=== PATIENT | male | born 1945 | race Caucasian/White ===

== ENCOUNTER 2017-10-14 12:56 | Inpatient (IN) | payer MEDICARE ==
[~2017-10-14] VITALS: Ht 185.4 cm; Wt 97.9 kg
[~2017-10-14 12:56] MED LIST: AMOCLA875 PO; Ambien5 MG PO; Antivert25 MG PO; BREO ELLIPTA 21 EACH IH; Calan Sr120 MG PO; ELIQUIS5 MG; ELIQUIS5 MG PO; ERGO400 PO; HYDMOR2 PO; HYDMOR4 PO; Isosorbide Mono30 MG PO; LISI5 PO; Lisinopril2.5 MG; METO50ER PO; Preservision A1 EACH PO; SERT25 PO; SERT50 PO; SOTO80; SOTO80 PO; TRAZ100 PO; VERA180ER PO; XARELTO15 MG PO; ZOLP5 PO
[2017-10-14 13:37] LABS: BASOPHILS ABSOLUTE AUTO 0.04 K/mm3 (0.00-0.23); BASOPHILS PERCENT AUTO 1 % (0-2); EOSINOPHILS ABSOLUTE AUTO 0.03 K/mm3 (0.00-0.68); EOSINOPHILS PERCENT AUTO 0 % (0-6); Hematocrit 41.5 % (37.0-53.0); Hemoglobin 14.1 g/dL (13.5-17.5); IMMATURE GRAN ABSOLUTE AUTO 0.03 K/mm3 (0.00-0.10); IMMATURE GRAN PERCENT AUTO 0 % (0-1); LYMPHOCYTES PERCENT AUTO 22 % (21-46); MONOCYTES ABSOLUTE AUTO 0.72 K/mm3 (0.16-1.47); MONOCYTES PERCENT AUTO 9 % (4-13); Mean Corpuscular HGB 30.9 pg (26.0-34.0); Mean Corpuscular Volume 91 fL (80-100); Mean Platelet Volume 10.6 fL (9.1-12.4); NEUTROPHILS ABSOLUTE AUTO 5.61 K/mm3 (1.96-9.15); NEUTROPHILS PERCENT AUTO 68 % (41-73); Platelet Count 182 K/mm3 (150-400); RDW Coefficient Variation 13.8 % (11.7-14.2); RDW Standard Deviation 45.7 fL (35.1-46.3); Red Blood Cell Count 4.57 M/mm3 (4.30-5.90); White Blood Cell Count 8.23 K/mm3 (4.00-11.30)
[2017-10-14 13:58] LABS: Alanine Aminotransfer (ALT/SGP 19 U/L (12-78); Albumin, Blood 3.5 g/dL (3.4-5.0); Albumin/Globulin Ratio 0.9 (0.8-1.8); Alk Phos 55 U/L (50-136); Anion Gap 8 mmol/L (6-16); Aspartate Aminotrans (AST/SGOT 18 U/L (12-37); Blood Urea Nitrogen 10 mg/dL (8-24); Bun/Creatinine Ratio 13.8 (12.0-20.0); CO2, Blood 23 mmol/L (21-32); Calcium, Blood 8.5 mg/dL (8.5-10.1); Chloride, Blood 107 mmol/L (98-108); Creatinine, Blood 0.73 mg/dL (0.60-1.20); Globulin, Blood 3.7 g/dL (2.2-4.0); Glomerular Filtration Rate >60 (60-); Glucose, Blood 154 mg/dL (70-99); Potassium, Blood 3.7 mmol/L (3.5-5.5); Sodium, Blood 138 mmol/L (136-145); Total Protein, Blood 7.2 g/dL (6.4-8.2); Troponin I <0.015 ng/mL (0.000-0.040)
[2017-10-15 04:25] LABS: Alanine Aminotransfer (ALT/SGP 18 U/L (12-78); Albumin/Globulin Ratio 0.9 (0.8-1.8); Alk Phos 47 U/L (50-136); Anion Gap 7 mmol/L (6-16); Aspartate Aminotrans (AST/SGOT 9 U/L (12-37); Bilirubin, Total 0.9 mg/dL (0.1-1.0); Blood Urea Nitrogen 9 mg/dL (8-24); Bun/Creatinine Ratio 10.8 (12.0-20.0); CO2, Blood 26 mmol/L (21-32); Calcium, Blood 8.3 mg/dL (8.5-10.1); Chloride, Blood 108 mmol/L (98-108); Creatinine, Blood 0.84 mg/dL (0.60-1.20); Globulin, Blood 3.5 g/dL (2.2-4.0); Glomerular Filtration Rate >60 (60-); Glucose, Blood 95 mg/dL (70-99); Potassium, Blood 3.7 mmol/L (3.5-5.5); Sodium, Blood 141 mmol/L (136-145); Total Protein, Blood 6.5 g/dL (6.4-8.2); Troponin I <0.015 ng/mL (0.000-0.040)
[2017-10-15 12:47] LABS: Source, Urine Voided
[2017-10-15 12:54] LABS: Appearance, Urine Clear (Clear); Bilirubin, Urine Neg (Neg); Blood, Urine Neg (Neg); Color, Urine Yellow (P-Yellow); Glucose Qualitative, Urine Neg (Neg); Ketones, Urine Neg (Neg); Leukocyte Esterase, Urine Neg (Neg); Nitrite, Urine Neg (Neg); Protein, Urine Neg (Neg); Urobilinogen, Urine NORM (Normal)
[2017-10-16 04:37] LABS: Anion Gap 7 mmol/L (6-16); Blood Urea Nitrogen 12 mg/dL (8-24); Bun/Creatinine Ratio 14.6 (12.0-20.0); CO2, Blood 27 mmol/L (21-32); Chloride, Blood 107 mmol/L (98-108); Creatinine, Blood 0.82 mg/dL (0.60-1.20); Glomerular Filtration Rate >60 (60-); Glucose, Blood 99 mg/dL (70-99); Potassium, Blood 3.6 mmol/L (3.5-5.5); Sodium, Blood 141 mmol/L (136-145)
[2017-10-16] MEDS ORDERED: Micro-K10 MEQ PO (19:18)
[2017-10-16] MEDS ORDERED: Lasix20 MG PO (19:19)
== END 2017-10-16 19:36 | disposition home or self-care (01) | DRG 310 ==
LOC: ER 12:56 → PCU 14:39
PROVIDERS: Emergency Medicine; Family Medicine
PROC: 5A2204Z Restoration of Cardiac Rhythm, Single (ICD-10-PCS; principal; 2017-10-16)
DX: I48.91 Unspecified atrial fibrillation (principal); J44.9 Chronic obstructive pulmonary disease, unspecified; I25.10 Atherosclerotic heart disease of native coronary artery without angina pectoris; I11.0 Hypertensive heart disease with heart failure; I50.9 Heart failure, unspecified; E78.5 Hyperlipidemia, unspecified; Z95.1 Presence of aortocoronary bypass graft; Z79.01 Long term (current) use of anticoagulants; Z79.899 Other long term (current) drug therapy; Z87.891 Personal history of nicotine dependence
CPT/HCPCS: 36415; 71045; 71046; 80048; 80053; 81003; 83880; 84484; 85025; 92960; 93005; 93010; 93306; 94640; 94760; 96374; 99285; J1940; J2250; J2310; J3010

== ENCOUNTER 2018-01-09 07:52 | Day surgery (SDC) | payer MEDICARE ==
[~2018-01-09] VITALS: Ht 182.9 cm; Wt 90.0 kg
[~2018-01-09 07:52] MED LIST changes: +LISI20 PO; +Lasix20 MG PO; +Micro-K10 MEQ PO; +POTA10T PO; +TRAZ100
== END 2018-01-09 22:32 | disposition home or self-care (01) ==
LOC: MHTC 07:52
PROC: 5A2204Z Restoration of Cardiac Rhythm, Single (ICD-10-PCS; principal; 2018-01-09)
DX: I48.0 Paroxysmal atrial fibrillation (principal); I25.10 Atherosclerotic heart disease of native coronary artery without angina pectoris; I42.9 Cardiomyopathy, unspecified; Z87.891 Personal history of nicotine dependence; Z79.01 Long term (current) use of anticoagulants
CPT/HCPCS: 92960; 93005; 93010; 99152; J2250; J2310; J3010; J7030

== ENCOUNTER 2018-07-06 05:55 | Day surgery (SDC) | payer MEDICARE ==
[~2018-07-06] VITALS: Ht 185.4 cm; Wt 90.0 kg
== END 2018-07-06 22:40 | disposition home or self-care (01) ==
LOC: MHTC 05:55
DX: I48.91 Unspecified atrial fibrillation (principal)
CPT/HCPCS: 92960; 93005; 93010; 99152; J2250; J3010; J7030

== ENCOUNTER 2018-09-13 09:09 | Day surgery (SDC) | payer MEDICARE ==
[~2018-09-13] VITALS: Ht 185.4 cm; Wt 86.4 kg
== END 2018-09-13 12:00 | disposition home or self-care (01) ==
LOC: MHTC 09:09
DX: I48.91 Unspecified atrial fibrillation (principal); I50.9 Heart failure, unspecified; I50.22 Chronic systolic (congestive) heart failure
CPT/HCPCS: 92960; 93005; 93010; 99152; J2250; J3010; J7030

== ENCOUNTER → 2019-05-29 | Outpatient (CLI) | payer MEDICARE | END | disposition home or self-care (01) | LOC: PLD 07:28 → LAB SHORT 07:28 | DX: D04.5 Carcinoma in situ of skin of trunk (principal) | CPT/HCPCS: 88305 ==

== ENCOUNTER 2019-07-21 12:44 | Emergency (ER) | payer OTHER, MEDICARE ==
[~2019-07-21] VITALS: Ht 185.4 cm; Wt 90.7 kg
[2019-07-21 13:18] LABS: BASOPHILS ABSOLUTE AUTO 0.04 K/mm3 (0.00-0.23); BASOPHILS PERCENT AUTO 1 % (0-2); EOSINOPHILS ABSOLUTE AUTO 0.04 K/mm3 (0.00-0.68); EOSINOPHILS PERCENT AUTO 1 % (0-6); Hematocrit 45.7 % (37.0-53.0); Hemoglobin 15.5 g/dL (13.5-17.5); IMMATURE GRAN ABSOLUTE AUTO 0.02 K/mm3 (0.00-0.10); IMMATURE GRAN PERCENT AUTO 0 % (0-1); LYMPHOCYTES PERCENT AUTO 32 % (21-46); MONOCYTES ABSOLUTE AUTO 0.89 K/mm3 (0.16-1.47); MONOCYTES PERCENT AUTO 12 % (4-13); Mean Corpuscular HGB 30.5 pg (26.0-34.0); Mean Corpuscular HGB Conc 33.9 g/dL (31.5-36.5); Mean Corpuscular Volume 90 fL (80-100); Mean Platelet Volume 10.6 fL (9.1-12.4); NEUTROPHILS ABSOLUTE AUTO 3.86 K/mm3 (1.96-9.15); NEUTROPHILS PERCENT AUTO 54 % (41-73); Platelet Count 164 K/mm3 (150-400); RDW Coefficient Variation 12.7 % (11.7-14.2); RDW Standard Deviation 41.4 fL (35.1-46.3); Red Blood Cell Count 5.08 M/mm3 (4.30-5.90); White Blood Cell Count 7.15 K/mm3 (4.00-11.30)
[2019-07-21 13:34] LABS: Alanine Aminotransfer (ALT/SGP 19 U/L (12-78); Albumin, Blood 3.7 g/dL (3.4-5.0); Albumin/Globulin Ratio 1.1 (0.8-1.8); Alk Phos 51 U/L (50-136); Anion Gap 8 mmol/L (6-16); Aspartate Aminotrans (AST/SGOT 13 U/L (12-37); Bilirubin, Total 0.7 mg/dL (0.1-1.0); Blood Urea Nitrogen 16 mg/dL (8-24); Bun/Creatinine Ratio 14.5 (12.0-20.0); CO2, Blood 23 mmol/L (21-32); Calcium, Blood 9.1 mg/dL (8.5-10.1); Chloride, Blood 110 mmol/L (98-108); Globulin, Blood 3.3 g/dL (2.2-4.0); Glomerular Filtration Rate >60 (60-); Glucose, Blood 104 mg/dL (70-99); Potassium, Blood 4.2 mmol/L (3.5-5.5); Sodium, Blood 141 mmol/L (136-145); Troponin I <0.015 ng/mL (0.000-0.040)
== END 2019-07-21 14:58 | disposition home or self-care (01) ==
LOC: ER 12:44
PROVIDERS: Emergency Medicine
DX: I48.91 Unspecified atrial fibrillation (principal); I25.10 Atherosclerotic heart disease of native coronary artery without angina pectoris; Z79.899 Other long term (current) drug therapy; Z87.891 Personal history of nicotine dependence
CPT/HCPCS: 36415; 80053; 84484; 85025; 92960; 93005; 93010; 99285-25; J2704; J7030

== ENCOUNTER 2019-08-17 13:30 | Emergency (ER) | payer OTHER, MEDICARE ==
[~2019-08-17] VITALS: Ht 185.4 cm; Wt 90.3 kg
[2019-08-17 14:16] LABS: BASOPHILS ABSOLUTE AUTO 0.04 K/mm3 (0.00-0.23); BASOPHILS PERCENT AUTO 1 % (0-2); EOSINOPHILS ABSOLUTE AUTO 0.07 K/mm3 (0.00-0.68); EOSINOPHILS PERCENT AUTO 1 % (0-6); Hematocrit 48.7 % (37.0-53.0); Hemoglobin 16.2 g/dL (13.5-17.5); IMMATURE GRAN ABSOLUTE AUTO 0.03 K/mm3 (0.00-0.10); IMMATURE GRAN PERCENT AUTO 0 % (0-1); LYMPHOCYTES ABSOLUTE AUTO 2.39 K/mm3 (0.84-5.20); LYMPHOCYTES PERCENT AUTO 35 % (21-46); MONOCYTES ABSOLUTE AUTO 0.82 K/mm3 (0.16-1.47); MONOCYTES PERCENT AUTO 12 % (4-13); Mean Corpuscular HGB 30.2 pg (26.0-34.0); Mean Corpuscular HGB Conc 33.3 g/dL (31.5-36.5); Mean Corpuscular Volume 91 fL (80-100); Mean Platelet Volume 10.6 fL (9.1-12.4); NEUTROPHILS ABSOLUTE AUTO 3.57 K/mm3 (1.96-9.15); NEUTROPHILS PERCENT AUTO 52 % (41-73); Platelet Count 171 K/mm3 (150-400); RDW Coefficient Variation 12.7 % (11.7-14.2); RDW Standard Deviation 41.9 fL (35.1-46.3); Red Blood Cell Count 5.37 M/mm3 (4.30-5.90); White Blood Cell Count 6.92 K/mm3 (4.00-11.30)
[2019-08-17 14:25] LABS: Alanine Aminotransfer (ALT/SGP 15 U/L (12-78); Albumin, Blood 3.8 g/dL (3.4-5.0); Alk Phos 58 U/L (50-136); Anion Gap 4 mmol/L (6-16); Aspartate Aminotrans (AST/SGOT 14 U/L (12-37); Bilirubin, Total 0.7 mg/dL (0.1-1.0); Blood Urea Nitrogen 14 mg/dL (8-24); Bun/Creatinine Ratio 13.5 (12.0-20.0); CO2, Blood 27 mmol/L (21-32); Chloride, Blood 107 mmol/L (98-108); Creatinine, Blood 1.04 mg/dL (0.60-1.20); Globulin, Blood 3.9 g/dL (2.2-4.0); Glomerular Filtration Rate >60 (60-); Glucose, Blood 101 mg/dL (70-99); Potassium, Blood 4.5 mmol/L (3.5-5.5); Sodium, Blood 138 mmol/L (136-145); Total Protein, Blood 7.7 g/dL (6.4-8.2); Troponin I <0.015 ng/mL (0.000-0.040)
== END 2019-08-17 16:24 | disposition home or self-care (01) ==
LOC: ER 13:30
PROVIDERS: Physician Assistant
DX: I48.0 Paroxysmal atrial fibrillation (principal); I25.10 Atherosclerotic heart disease of native coronary artery without angina pectoris; Z79.899 Other long term (current) drug therapy; Z79.01 Long term (current) use of anticoagulants; Z87.891 Personal history of nicotine dependence
CPT/HCPCS: 36415; 71046; 80053; 83880; 84484; 85025; 92960; 93005; 93010; 99285-25; J2704; J7030

== ENCOUNTER 2020-10-19 05:35 | Inpatient (IN) | payer OTHER, MEDICARE ==
[~2020-10-19] VITALS: Ht 185.4 cm; Wt 91.6 kg
[~2020-10-19 05:35] MED LIST changes: +ALBU90OI INH; +METO25ER PO; +PRED20 PO; +TIOT18 INH
[2020-10-19 05:48] LABS: BASOPHILS ABSOLUTE AUTO 0.06 K/mm3 (0.00-0.23); BASOPHILS PERCENT AUTO 1 % (0-2); EOSINOPHILS ABSOLUTE AUTO 0.06 K/mm3 (0.00-0.68); EOSINOPHILS PERCENT AUTO 1 % (0-6); Hematocrit 40.1 % (37.0-53.0); Hemoglobin 13.5 g/dL (13.5-17.5); IMMATURE GRAN ABSOLUTE AUTO 0.05 K/mm3 (0.00-0.10); IMMATURE GRAN PERCENT AUTO 0 % (0-1); LYMPHOCYTES ABSOLUTE AUTO 1.14 K/mm3 (0.84-5.20); LYMPHOCYTES PERCENT AUTO 9 % (21-46); MONOCYTES ABSOLUTE AUTO 1.55 K/mm3 (0.16-1.47); MONOCYTES PERCENT AUTO 12 % (4-13); Mean Corpuscular HGB 30.4 pg (26.0-34.0); Mean Corpuscular HGB Conc 33.7 g/dL (31.5-36.5); Mean Corpuscular Volume 90 fL (80-100); Mean Platelet Volume 9.6 fL (9.1-12.4); NEUTROPHILS ABSOLUTE AUTO 9.85 K/mm3 (1.96-9.15); NEUTROPHILS PERCENT AUTO 77 % (41-73); Platelet Count 237 K/mm3 (150-400); RDW Coefficient Variation 13.8 % (11.7-14.2); RDW Standard Deviation 45.3 fL (35.1-46.3); Red Blood Cell Count 4.44 M/mm3 (4.30-5.90); White Blood Cell Count 12.71 K/mm3 (4.00-11.30)
[2020-10-19 06:00] LABS: PCO2 Arterial 29.7 mmHg (35-45); pH Blood Arterial 7.43 (7.35-7.45)
[2020-10-19 06:01] LABS: PO2 Arterial 45.9 mmHg (80-100)
[2020-10-19 06:12] LABS: Alanine Aminotransfer (ALT/SGP 17 U/L (12-78); Albumin, Blood 3.2 g/dL (3.4-5.0); Albumin/Globulin Ratio 0.8 (0.8-1.8); Alk Phos 62 U/L (50-136); Anion Gap 11 mmol/L (6-16); Aspartate Aminotrans (AST/SGOT 20 U/L (12-37); Bilirubin, Total 1.6 mg/dL (0.1-1.0); Blood Urea Nitrogen 8 mg/dL (8-24); Bun/Creatinine Ratio 8.9 (12.0-20.0); CO2, Blood 22 mmol/L (21-32); Calcium, Blood 8.5 mg/dL (8.5-10.1); Chloride, Blood 106 mmol/L (98-108); Globulin, Blood 4.1 g/dL (2.2-4.0); Glomerular Filtration Rate >60 (60-); Glucose, Blood 129 mg/dL (70-99); Potassium, Blood 3.3 mmol/L (3.5-5.5); Sodium, Blood 139 mmol/L (136-145); Total Protein, Blood 7.3 g/dL (6.4-8.2); Troponin I <0.015 ng/mL (0.000-0.040)
[2020-10-19] MEDS ORDERED: AMIODARONE HCL100 M3 (09:28)
[2020-10-19 09:33] LABS: Influenza A, PCR NEGATIVE (NEGATIVE); Influenza B, PCR NEGATIVE (NEGATIVE); Resp Syncytial Virus, PCR NEGATIVE (NEGATIVE); SARS-Cov-2 (COVID-19) PCR, MMC NEGATIVE (NEGATIVE)
[2020-10-19 09:53] LABS: Source, Urine Clean Catch
[2020-10-19 10:06] LABS: Appearance, Urine Clear (Clear); Bilirubin, Urine Neg (Neg); Blood, Urine 1+ (Neg); Color, Urine Yellow (P-Yellow); Glucose Qualitative, Urine Neg (Neg); Ketones, Urine 3+ (Neg); Leukocyte Esterase, Urine Neg (Neg); Nitrite, Urine Neg (Neg); Protein, Urine 1+ (Neg); Urobilinogen, Urine NORM (Normal)
[2020-10-19 10:30] LABS: Bacteria Rare /hpf; Red Blood Cells, Urine 0-2 /hpf (0-2); Squamous Epithelial Cells Rare /hpf (Few); White Blood Cells, Urine 0-2 /hpf (0-5)
--- NOTE | 2020-10-19 18:28 | NUR ---
PT ADMIT FROM ER TODAY AT APPROX 1130. PT ADMITTED FOR RESP FAILURE, BILATERAL PNEUMONIA, SEPSIS. PT ARRIVES TO UNIT A&O, ON CPAP AT 7 CMH20 AND 60% FIO2, O2 SATS IN LOW 90s. PT ABLE TO SLIDE HIMSELF FROM ER GURNEY TO PCU BED. PT FOUND TO BE NOT TOLERATING CPAP AT TIMES, FOUND TO BE PULLING AT MASK OR HOLDING IT AWAY FROM HIS FACE WHILE TRYING TO TALK. PT EDUCATED ABOUT NEED TO KEEP MASK IN PLACE. AT ONE POINT PT FELL ASLEEP, WAS CONFUSED UPON WAKING, PULLED HIS MASK OFF AND O2 SATS RAPIDLY DECLINED TO HIGH 60s. MASK PLACED BACK ON PT, PT SATS IMPROVE AFTER A COUPLE MINUTES. PT MEDICATED WITH PRN PO ATIVAN FOR AGITATION, PT REPORTS IMPROVEMENT OF ANXIETY R/T MASK AND SITUATION. PT ALSO WITH DRY COUGH THAT HE REPORTS HAS BEEN PRESENT WITH HIS INCREASING SOB OVER THE PAST FEW DAYS. 1500 ML FLUID [address]RICTION IN PLACE, PT NPO AT THIS TIME, PENDING SPEECH THERAPY EVAL. AT THIS TIME, PT RESTING QUIETLY IN ROOM, NAD. WILL CONTINUE TO MONITOR AND TREAT ACCORDINGLY UNTIL CHANGE OF SHIFT.
--- NOTE | 2020-10-19 21:59 | NUR ---
UPDATE PATIENT UP TO USE THE URINAL AND O2 DROPPED INTO THE 70'S AND TOOK SEVERAL MINUTES TO RECOVER. NURSE PRACTIONER KYLE WEINSTEIN NOTIFIED. STANLEY SCHNEIDER CURRENTLY IN ROOM ASSESS AND TALKING WITH PATIENT. PATIENT CURRENTLY ON HIGH FLOW VIA BIPAP AT 60L AND 100% FIO2.
--- NOTE | 2020-10-19 22:13 | NUR ---
UPDATE STANLEY WEINSTEIN ON PHONE WITH PATIENT'S NEPHEW TALKING TO NEPHEW AND PATIENT ABOUT O2 REQUIRMENTS AND THE POSSIBLE NEED TO TRANSFER TO ICU FOR CLOSER OXYGENATION MONITORING. STANLEY WEINSTEIN ASKED RN TO PERFORM A BEDSIDE SWALLOW EVAL AND ATTEMPT TO ADMINSTER 2100 PO MEDICATIONS. PATIENT ABLE TO PASS BEDSIDE SWALLOW EVAL AT THIS TIME.
[2020-10-19 23:06] LABS: PCO2 Arterial 30.5 mmHg (35-45); PO2 Arterial 56.4 mmHg (80-100); pH Blood Arterial 7.46 (7.35-7.45)
--- NOTE | 2020-10-19 23:37 | NUR ---
TRANSFER NOTE REPORT GIVEN TO ELEVATED GUARD. ALL BELONGINGS GATHERED AND SENT WITH PATIENT UPON TRANSFER. PATIENT TRANSFERED VIA BED WITH RT MANAGING BIPAP ON CPAP SETTINGS. FAMILY AWARE OF TRANSFER.
--- NOTE | 2020-10-20 00:57 | NUR ---
ASSUMPTION OF CARE PT TRANSFERRED TO ICU FROM PCU AT 2337. PT ON BIPAP UPON ARRIVAL TO UNIT, O2 SATURATION 85%. NEW ORDERS PLACED FOR PRECEDEX DRIP TO BE STARTED, PER KYLE SALES UTILITY REPRESENTATIVE OK TO BUMP RATE UP TO 1 MCG TO HELP CALM PT DOWN. 0.5MG ATIVAN ALSO ORDERED TO DECREASE ANXIETY. TEMP SENSING SOLOMON PLACED. PT RESTING COMFORTABLY. PT REQUESTED NO FAMILY THEY INCREASE HIS ANXIETY, FAMILY UPDATED BY SALES UTILITY REPRESENTATIVE.
[2020-10-20 02:25] LABS: Source, Urine Catheter
[2020-10-20 02:27] LABS: Bilirubin, Urine Neg (Neg); Blood, Urine 5+ (Neg); Glucose Qualitative, Urine Neg (Neg); Ketones, Urine 1+ (Neg); Leukocyte Esterase, Urine Neg (Neg); Nitrite, Urine Neg (Neg); Protein, Urine 1+ (Neg); Urobilinogen, Urine NORM (Normal)
[2020-10-20 02:35] LABS: Appearance, Urine Clear (Clear); Color, Urine Yellow (P-Yellow)
[2020-10-20 02:37] LABS: Bacteria Mod /hpf; Mucus Light (0-Heavy); Red Blood Cells, Urine 50-100 /hpf (0-2); Squamous Epithelial Cells Few /hpf (Few)
[2020-10-20 03:29] LABS: BASOPHILS ABSOLUTE AUTO 0.01 K/mm3 (0.00-0.23); BASOPHILS PERCENT AUTO 0 % (0-2); EOSINOPHILS PERCENT AUTO 0 % (0-6); Hematocrit 37.2 % (37.0-53.0); Hemoglobin 12.5 g/dL (13.5-17.5); IMMATURE GRAN ABSOLUTE AUTO 0.04 K/mm3 (0.00-0.10); IMMATURE GRAN PERCENT AUTO 0 % (0-1); LYMPHOCYTES ABSOLUTE AUTO 0.46 K/mm3 (0.84-5.20); LYMPHOCYTES PERCENT AUTO 4 % (21-46); MONOCYTES ABSOLUTE AUTO 0.81 K/mm3 (0.16-1.47); MONOCYTES PERCENT AUTO 6 % (4-13); Mean Corpuscular HGB 29.9 pg (26.0-34.0); Mean Corpuscular HGB Conc 33.6 g/dL (31.5-36.5); Mean Corpuscular Volume 89 fL (80-100); Mean Platelet Volume 9.3 fL (9.1-12.4); NEUTROPHILS ABSOLUTE AUTO 11.36 K/mm3 (1.96-9.15); NEUTROPHILS PERCENT AUTO 90 % (41-73); Platelet Count 231 K/mm3 (150-400); RDW Coefficient Variation 13.7 % (11.7-14.2); RDW Standard Deviation 44.6 fL (35.1-46.3); Red Blood Cell Count 4.18 M/mm3 (4.30-5.90); White Blood Cell Count 12.68 K/mm3 (4.00-11.30)
[2020-10-20 03:48] LABS: Anion Gap 6 mmol/L (6-16); Blood Urea Nitrogen 15 mg/dL (8-24); Bun/Creatinine Ratio 18.1 (12.0-20.0); CO2, Blood 26 mmol/L (21-32); Calcium, Blood 8.4 mg/dL (8.5-10.1); Chloride, Blood 108 mmol/L (98-108); Creatinine, Blood 0.83 mg/dL (0.60-1.20); Glomerular Filtration Rate >60 (60-); Glucose, Blood 140 mg/dL (70-99); Magnesium, Blood 2.5 mg/dL (1.6-2.4); Potassium, Blood 4.2 mmol/L (3.5-5.5); Sodium, Blood 140 mmol/L (136-145); Troponin I <0.015 ng/mL (0.000-0.040)
[2020-10-20 05:00] LABS: PCO2 Arterial 36.2 mmHg (35-45); PO2 Arterial 60.3 mmHg (80-100); pH Blood Arterial 7.45 (7.35-7.45)
--- NOTE | 2020-10-20 05:49 | NUR ---
SHIFT SUMMARY PT RESTING COMFORTABLY IN BED. PRECEDEX AT 1 MCG/KG/HR, NS AT TKO RATE 10 ML/HR. VSS. BIPAP FIO2 REDUCED FROM 75% TO 60%, SATURATION REMAINS >90%. SOLOMON PATENT AND DRAINING TO GRAVITY. PT REMAINS AROUSABLE TO VOICE, FOLLOWING COMMANDS.
--- NOTE | 2020-10-20 08:32 | NUR ---
ASSUMED CARE REPORT RECEIVED FROM PEEWEE MARTÍNEZ. PT RESTING COMFORTABLY ON BIPAP. BIPAP REMOVED FOR ORAL CARE AND PT PLACED ON 6L/NC. PT TOLERATED THIS FOR ABOUT 1 MINUTE BEFORE HE STARTED DROPPING HIS SATS. PT DROPPED TO 85% BY THE TIME ORAL CARE COMPLETE. PT'S NOSE BRIDGE STARTING TO GET PINK. GEL PAD PLACED UNDER BIPAP. BIPAP REPLACED ANDPT RESTING AGAIN. PRECEDEX INFUSING.
--- NOTE | 2020-10-20 12:58 | NUR ---
REASSESSMENT PT REMAINED ON THE BIPAP THROUGHOUT THE MORNING. EVEN WITH OXYMIZER AT 15L PT DESATURATES TO THE MID 80S WHEN OFF BIPAP. FOR MIDDAY ORAL CARE PT ON 15L OXYMIZER FOR ABOUT 10 MINUTES IN WHICH HE STARTED OFF AROUND 88%, SLOWLY DROPPED TO 85% WHICH HE STAYED AT FOR ABOUT HALF THE TIME, THEN MASK REPLACED ONCE HE DROPPED TO 84%. LUNGS STILL HAVE CRACKLES IN THE BASES. AFIB, BP STABLE. PT HAD AN ANXIETY EPISODE MID MORNING IN WHICH PRECEDEX HAD TO BE INCREASED AND ATIVAN GIVEN. PT SETTLED BACK DOWN QUICKLY AFTER THE MEDICATION. SPEECH CAME BY TO SEE PT, BUT CAN'T DO EVAL SINCE HE ISN'T TOLERATING TIME OFF OF THE BIPAP. LASIX GIVEN AND PT HAVE CL, LT YELLOW URINE OUTPUT. PT'S FAMILY UPDATED THIS MORNING. CONTINUING TO MONITOR.
--- NOTE | 2020-10-20 17:33 | NUR ---
SHIFT SUMMARY PT HAS BEEN RESTING THROUGHOUT THE SHIFT WITH PRECEDEX INFUSION. HIS MAIN COMPLAINT TODAY WAS WANTING WATER. PT'S SISTER AND NIECE MET WITH JONATHAN FROM PALLIATIVE AND SPOKE WITH DR. FLORES AND DECIDED TO HEAD TOWARD COMFORT CARE SO PT WAS ALLOWED TO HAVE SIPS OF WATER THIS AFTERNOON AND THIS PROVIDED HIM LOTS OF COMFORT. PT ALSO SWITCHED TO HI ANTHONY FROM BIPAP THIS AFTERNOON AND HE IS TOLERATING IT WELL. PRECEDEX REMAINS ON TO ASSIST IN PT COMFORT AT THIS TIME WELL. LUNGS STILL HAVE CRACKLES IN THE BASES. SR, BP STABLE. SOLOMON DRAINING CL YELLOW URINE. PT'S FAMILY LEFT EARLIER. NO OTHER CONCERNS AT THIS TIME.
--- NOTE | 2020-10-20 18:06 | NUR ---
Pt anxious on ervo and precidex. Family wanting to go to comfort as per his wishes. Family discussion on qulity of life and respectful passing. Pt lives with his sister and has expressed tht he is nearing the end of his life. Pt sister has been reading some supportive books on how to speak withhim about his life. Review of comfort and hospice. At i time pt may not tolerate transfer hoem due to high oxygen need. The agreed to hospice and comfort. Pt sister is on oxygen and may not be able to care for him. Advised we will re-evaluate how he reponds and form a plan. Oders place for comfort review with physican we will continue ervo and titrate down and wean off precidex. pt more alert and comfortable tolerating po will follow up.
--- NOTE | 2020-10-20 21:09 | NUR ---
ASSUMPTION OF CARE REPORT RECEIVED FROM HERNANDO VIDES. PT RESTING COMFORTABLY IN BED. VSS, HR 80'S, BP 130'S. IV LINES SALINE LOCKED. PRN MEDS FOR PATIENT COMFORT. PT OK'D FOR SIPS/CHIPS. SOLOMON PATENT AND DRAINING TO GRAVITY.
--- NOTE | 2020-10-21 01:00 | NUR ---
ASSUMED CARE OF PT, REPORT RECEIVED. PT IS RESTING QUIETLY RECLINING IN BED, ADMITS TO SEVERE PAIN WITH COUGHING FITS, ACCEPTS ROXANOL ADMINISTRATION WILL MONITOR FOR EFFECTIVE PAIN CONTROL. 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 SENTENCE LENGTH IS NOTED AT 4 WORDS OR LESS PER BREATH, AIRVO IN USE, SATS MAINTAIN LOW 90S WITH REST HOWEVER PT DESATS TO 80S WITH CONVERSATION. HE IS CONCERNED REGARDING PLAN FOR IF HE NEEDS TO HAVE A BOWEL MOVEMENT, DISCUSSED BEDSIDE COMMODE VS BEDPAN, PT DENIES NEED FOR BOWEL MOVEMENT AT THIS TIME. HE IS HOPEFUL THAT [facility] WILL HAVE ACCEPTABLE HOSPICE ARRANGEMENTS FOR HIM.
--- NOTE | 2020-10-21 06:37 | NUR ---
ASSUMED CARE OF PT AT 0100 THIS AM, PT HAS DECLINED TO TURN SINCE THAT TIME, STATES THAT HE IS COMFORTABLE IN CURRENT POSITION, HAS ACCEPTED ASSISTANCE WITH BOOSTS IN BED, THIS RN HAS SEEN PT SHIFT BUTTOCKS ON MATTRESS HOWEVER MINIMAL POSITION CHANGE WAS NOTED AT THAT TIME. PT CONTINUES TO DECLINE ASSISTANCE WITH REPOSITIONING. CHIEF COMPLAINT HAS BEEN PAIN WITH COUGH AND COUGH FREQUENCY INCREASE WITH VERBALIZATION. HE STATES THAT HE HAS TO BE ABLE TO SPEAK HE HAS VISITORS COMING TO SEE HIM FOR THE LAST TIME OVER THE NEXT 2 DAYS. TESSALON PEARLS WERE ORDERED BY HOSPITALIST AUDIOVISUAL LEAD TECHNICIAN AND PT STATED THAT THIS DID SEEM TO HELP RELIEVE HIS COUGH. HE DECLINED TO HAVE COUGH SYRUP ORDERED HE STATES THAT MAKES HIM NAUSEOUS, DID DISCUSS THAT ANTIEMETICS HAVE BEEN ORDERED AND ARE AVAILABLE. PT CONTINUES TO DECLINE COUGH SYRUP.
--- NOTE | 2020-10-21 07:37 | NUR ---
ASSUMED CARE: PT RESTING IN BED WITH AIRVO IN PLACE. COUGHS WITH EXERTION, REQUESTED IV FROM [facility] TO BE REMOVED. NO ACUTE NEEDS OR CONCERNS AT THIS TIME.
--- NOTE | 2020-10-21 13:00 | NUR ---
DR GARCIA CAME TO SEE PT AND PT'S GOALS WERE DISCUSSED AND PT STATED THAT HE WOULD RATHER BE HERE AND COMFORTABLE THAN TRY TO GO HOME. DISCUSSED THIS WITH DC MIXING ENGINEER KISHOR WHO IS AWARE OF PT'S STATUS AND GOALS. FAMILY AT BEDSIDE AT THIS TIME.
--- NOTE | 2020-10-21 16:38 | NUR ---
PT STATED THAT AIRVO WAS BECOMING TOO UNCOMFORTABLE BLOWING IN THE BACK OF HIS NOSE. RT TURNED FLOW DOWN TO 35L AND 100% FIO2. PT STATED FELT BETTER BUT WAS STILL UNCOMFORTABLE. SWITCHED HIM TO HIFLOW NC AT 13L. STATES FEELS COMFORTABLE AT THIS TIME. FAMILY AT BEDSIDE.
--- NOTE | 2020-10-21 18:52 | NUR ---
SHIFT SUMMARY: PT HAS REQUIRED FREQUENT MEDICATING FOR ANXIETY AND AIR HUNGER T/O SHIFT. MEDICATED FOR COUGH WITH TESSALON PERLS AND CEPACOL LOZENGES. PT HAS ALTERNATED BETWEEN OXYGEN ROUTES THIS SHIFT, AIRVO, NC, AND BIPAP. STATES HE FEELS COMFORTABLE ON BIPAP AT THIS TIME. HR HAS BEEN NOTED TO BE ELEVATED IN 130S-150S WITH FREQUENT PVCS AT TIMES. FAMILY AT BEDSIDE. NO ACUTE NEEDS AT THIS TIME.
--- NOTE | 2020-10-21 19:00 | NUR ---
ASSUMED CARE OF PT, HE IS RESTING QUIETLY WITH VISITOR AT BEDSIDE, C/O AIR HUNGER AND COUGH. TESSALON JOSE ADMINISTERED WITHIN PAST HALF HOUR, WILL MONITOR FOR EFFECTIVENESS. DISCUSSED MORPHINE UPDRAFT VS MORPHINE IV FOR CONTROL OF AIR HUNGER WITH RT, PER RT, MORPHINE IV IS USUALLY MORE EFFECTIVE FOR CONTROL OF AIR HUNGER THAN MORPHINE UPDRAFT, THIS IS DISCUSSED WITH PT AND VISITOR, WILL CONTINUE MORPHINE IV PER ORDERS AT THIS TIME, IF INEFFECTIVE WILL CONTACT HOSPITALIST TO DISCUSS POSSIBILITY OF FURTHER INTERVENTIONS FOR AIR HUNGER AND COUGH.
--- NOTE | 2020-10-21 23:56 | NUR ---
PT. TRANSFER FROM ICU. RECEIVED REPORT FROM CHARLIE VIDES. ON COMFORT CARE, TRANSFERRED ONTO MEDICAL UNIT BED. PT. ON 10L HIGH FLOW O2, BIPAP AT BEDSIDE PRN. PT. DROWSY, RECENTLY MEDICATED. FAMILY MEMBER AT BEDSIDE. CALL LIGHT WITHIN REACH AND BED IN LOW POSITION. WILL CONT TO MONITOR.
--- NOTE | 2020-10-22 01:46 | NUR ---
@0015- CALLED TO ROOM BY LEARNING AND DEVELOPMENT INTERN STATING PT. DID NOT APPEAR TO BE BREATHING. PT. FOUND UNRESPONSIVE IN BED, NO RESPIRATIONS, NO PULSE, NO HEART OR BREATH SOUNDS AUSCULTATED. PT. DNR/COMFORT CARE, VERIFIED WITH OTHER RN. HOSPITALIST DR. CARRILLO MADE AWARE AND FAMILY NOTIIFED. FAMILY ARRIVED TO SEE PT. AND BELONGINGS WERE TAKEN BY THEM. INDWELLING URINARY CATHETER AND IV ACCESS IN R FOREARM REMOVED AND GAUZE APPLIED. POSTMORTEM CARE PERFORMED. AWAITING FOR HOME TO TRANSPORT PT.
== END 2020-10-22 00:15 | DRG 871 ==
LOC: ER 05:35 → ICUW 08:49 → PCU 08:49 → ICUW 22:54 → MEDS 10-21 23:41
PROVIDERS: Emergency Medicine; Internal Medicine Pulmonary Disease; Nurse Practitioner Acute Care; ADMIT Internal Medicine
PROC: 5A09357 Assistance with Respiratory Ventilation, Less than 24 Consecutive Hours, Continuous Positive Airway Pressure (ICD-10-PCS; principal; 2020-10-19)
DX: A41.9 Sepsis, unspecified organism (principal); J18.9 Pneumonia, unspecified organism; J96.01 Acute respiratory failure with hypoxia; I50.42 Chronic combined systolic (congestive) and diastolic (congestive) heart failure; Z51.5 Encounter for palliative care; Z66 Do not resuscitate; Z20.822 Contact with and (suspected) exposure to COVID-19; R65.20 Severe sepsis without septic shock; E87.6 Hypokalemia; I25.10 Atherosclerotic heart disease of native coronary artery without angina pectoris; I48.0 Paroxysmal atrial fibrillation; J84.10 Pulmonary fibrosis, unspecified; J43.9 Emphysema, unspecified; G89.4 Chronic pain syndrome; I49.5 Sick sinus syndrome; Z87.891 Personal history of nicotine dependence; Z95.1 Presence of aortocoronary bypass graft; Z90.49 Acquired absence of other specified parts of digestive tract; Z88.8 Allergy status to other drugs, medicaments and biological substances; Z79.01 Long term (current) use of anticoagulants; Z79.899 Other long term (current) drug therapy; Z86.73 Personal history of transient ischemic attack (TIA), and cerebral infarction without residual deficits
CPT/HCPCS: 0241U; 36415; 36600; 51702; 71045; 80048; 80053; 81001; 82803; 83605; 83735; 83880; 84145; 84484; 85025; 87040; 87070; 87086; 87205; 87449; 92610; 93005; 93010; 93306; 94640; 94660; 94762; 96365-59; 96375-59; 99285-25; A9270; A9270-GY; J0456; J0696; J1940; J2060; J2270; J2920; J2930; J3010; J3475; J3480; J7040; J7050